=== PATIENT | female | born 1955 | race Hispanic/Latino ===

== ENCOUNTER 2020-05-31 11:57 | Emergency (ER) | payer OTHER ==
[2020-05-31] MEDS ORDERED: KETOROLAC TROMETHAMINE 30MG/ML ONE (12:19)
[2020-05-31] MEDS ORDERED: SODIUM CHLORIDE 0.9% 100 ML IV ONE (12:19)
[2020-05-31] MEDS ORDERED: CYCLOBENZAPRINE HCL 10 MG TABLET ONE (12:19)
== END 2020-05-31 13:46 | disposition home or self-care (01) ==
LOC: EDH 11:57
DX: K52.9 Noninfective gastroenteritis and colitis, unspecified (principal); G44.209 Tension-type headache, unspecified, not intractable; I10 Essential (primary) hypertension; Z20.822 Contact with and (suspected) exposure to COVID-19
CPT/HCPCS: 87426; 87804 ×2; 99283; U0003; J1885

== ENCOUNTER 2022-12-27 21:45 | Emergency (ER) | payer OTHER ==
[~2022-12-27] VITALS: Ht 147.3 cm; Wt 84.8 kg
[2022-12-28 00:42] LABS: BASOPHILS # (AUTO) 0.02 K/uL (0.00-0.20); BASOPHILS % (AUTO) 0.3 % (0.0-5.0); EOSINOPHILS # (AUTO) 0.06 K/uL (0.00-0.70); EOSINOPHILS % (AUTO) 0.8 % (0.0-8.0); HEMATOCRIT 44.3 % (36-48); IMMATURE GRANULOCYTE ABSOLUTE 0.03 K/uL (0-1); LYMPHOCYTES # (AUTO) 1.6 K/uL (1.0-4.8); LYMPHOCYTES % (AUTO) 22.2 % (21.0-51.0); MEAN CORPUSCULAR HEMOGLOBIN 30.8 pg (27.0-33.0); MEAN CORPUSCULAR HGB CONC 33.6 g/dL (32.0-36.0); MEAN CORPUSCULAR VOLUME 91.7 fL (79-99); MONOCYTES # (AUTO) 0.4 K/uL (0.1-1.0); MONOCYTES % (AUTO) 5.2 % (3.0-13.0); NEUTROPHILS # (AUTO) 5.1 K/uL (1.8-7.7); NEUTROPHILS % (AUTO) 71.1 % (40.0-77.0); PLATELET COUNT (AUTO) 301 K/uL (130-400); RED BLOOD CELL COUNT(AUTO) 4.83 MIL/uL (4.00-5.50); RED CELL DISTRIBUTION WIDTH 12.3 % (11.0-15.5); WHITE BLOOD COUNT (AUTO) 7.1 K/uL (4.8-10.8)
[2022-12-28 00:53] LABS: ADD UA MICROSCOPIC NO; APPEARANCE,URINE CLEAR (CLEAR); BILIRUBIN,URINE NEGATIVE (NEGATIVE); COLOR,URINE COLORLESS (YELLOW); GLUCOSE, URINE (UA) NEGATIVE (NEGATIVE); KETONES,URINE NEGATIVE (NEGATIVE); LEUKOCYTE ESTERASE ,URINE NEGATIVE Leu/uL (NEGATIVE); NITRATE,URINE NEGATIVE (NEGATIVE); OCCULT BLOOD,URINE NEGATIVE (NEGATIVE); PH,URINE 5.5 (5.0-8.0); PROTEIN,URINE NEGATIVE (NEGATIVE); UROBILINOGEN,URINE 0.2 mg/dL (0.2-1.0)
[2022-12-28 01:03] LABS: CREATININE 0.9 mg/dL (0.5-1.5); POTASSIUM 3.7 mmol/L (3.5-5.1)
[2022-12-28 01:07] LABS: ALBUMIN 4.1 g/dL (3.5-5.0); BILIRUBIN,TOTAL 0.4 mg/dL (0.2-1.0); TOTAL PROTEIN, SERUM 8.4 g/dL (6.0-8.3)
[2022-12-28] MEDS ORDERED: FAMOTIDINE 20MG VIAL IV ONE (01:30)
[2022-12-28] MEDS ORDERED: METOCLOPRAMIDE 10 MG/2 ML VIAL IVP ONE (01:30)
[2022-12-28] MEDS ORDERED: 0.9%NACL 1000ML 1,000 ML IV ONE (01:30)
[2022-12-28 09:16] VITALS: BP 125/70; PULSE 68; RESP 17; O2SAT 99
[2022-12-28] MEDS ORDERED: FAMO-136 PO (09:40)
[2022-12-28] MEDS ORDERED: ONDA22I IM (09:40)
== END 2022-12-28 09:58 | disposition home or self-care (01) ==
LOC: EDH 21:45
DX: K52.9 Noninfective gastroenteritis and colitis, unspecified (principal); E11.65 Type 2 diabetes mellitus with hyperglycemia; I10 Essential (primary) hypertension
CPT/HCPCS: 99285; 84484; 80053; 83690; 85025; 82010; 81003; 36415; 74176; 96374; 76857; 96361; 96375; 93005; J3490; J7030; J2765